=== PATIENT | female | born 1945 | race Caucasian/White ===

== ENCOUNTER 2019-12-03 09:48 | Outpatient (CLI) | payer MEDICARE, SELFPAY ==
--- NOTE | 2019-12-03 10:47 | ECG_ITS ---
Measurements Intervals [place] Rate: 51 P: 155 IL: 160 QRS: -21 QRSD: 86 T: 149 QT: 443 QTc: 410 Interpretive Statements ECTOPIC ATRIAL BRADYCARDIA CANNOT RULE OUT SEPTAL INFARCT, AGE INDETERMINATE LATERAL INFARCT, AGE INDETERMINATE BORDERLINE ST-T WAVE ABNORMALITY- ANTERIOR LEADS BASELINE ARTIFACT- I, III, AVL, V2 ABNORMAL ECG Electronically Signed On 12-03-2019 12:00:51 [employer] INVESTIGATOR by Walter Armenta D.O.
[2019-12-03 11:25] LABS: Basophils Absolute Auto 0.1 K/mm3 (0.0-0.1); Basophils Percent Auto 1.2 % (0.2-1.2); Eosinophils Absolute Auto 0.2 K/mm3 (0-0.3); Eosinophils Percent Auto 3.6 % (0-4.4); Hematocrit 42.5 % (37.0-47.0); Hemoglobin 13.2 g/dL (12.0-15.0); Immature Granulocyte Absolute 0.02 K/mm3 (0.00-0.031); Immature Granulocyte Percent A 0.3 % (0-0.5); Lymphocytes Absolute Auto 1.93 K/mm3 (0.9-3.2); Lymphocytes Percent Auto 30.1 % (18.3-44.2); Mean Corpuscular HGB Conc 31.1 g/dl (32-36); Mean Corpuscular Hemoglobin 24.4 pg (26-34); Mean Corpuscular Volume 78.7 fl (80-100); Mean Platelet Volume 10.1 fl (7.4-10.4); Monocytes Absolute Auto 0.7 K/mm3 (0.1-0.6); Monocytes Percent Auto 10.9 % (2.6-8.5); Neutrophils Absolute Auto 3.5 K/mm3 (1.3-6.7); Neutrophils Percent Auto 53.9 % (45.5-73.1); Platelet Count Result 287 k/mm3 (150-375); Red Cell Distribution Width 16.9 % (11.5-14.5); White Blood Count 6.4 K/mm3 (4.5-10.0)
[2019-12-03 11:43] LABS: INR 0.9; Partial Thromboplastin Time 30.2 SECONDS (22.3-36.8); Prothrombin Time 12.1 Seconds (11.1-14.7)
[2019-12-03 11:53] LABS: Alanine Aminotransferase 22 U/L (4-35); Albumin Level 4.7 g/dL (3.5-5.1); Alkaline Phosphatase 92 U/L (38-126); Aspartate Amino Transferase 33 U/L (14-36); Bilirubin,Total 1.2 mg/dL (0.2-1.3); Blood Urea Nitrogen 10 mg/dL (7-17); Calcium 9.8 mg/dL (8.4-10.2); Carbon Dioxide 29 mmol/L (22-30); Chloride 102 mmol/L (98-107); Estimated Glomerular Filt Rate > 60; Glucose 90 mg/dL (65-105); Potassium 3.9 mmol/L (3.4-5.0); Sodium 142 mmol/L (137-145)
== END 2019-12-03 09:49 | disposition home or self-care (01) ==
LOC: ANHSURGERY 09:53
PROVIDERS: PCP Family Medicine; Visit Provider Urology
DX: Z01.818 Encounter for other preprocedural examination (principal); R94.31 Abnormal electrocardiogram [ECG] [EKG]; N39.3 Stress incontinence (female) (male)
CPT/HCPCS: 36415; 80053; 85025; 85610; 85730; 86850; 86900; 86901; 87086; 93005

== ENCOUNTER 2019-12-13 00:19 | Day surgery (SDC) | payer MEDICARE, SELFPAY ==
[2019-12-03 10:47] VITALS: BP 140/80; PULSE 56; RESP 18; TEMP 36.7; O2SAT 100; BMI 21.1
--- NOTE | 2019-12-08 08:04 | P.HP_ITS ---
H&P: HPI History of Present Illness Chief complaint: Cystocele/ Uterine Prolapse Narrative: Sarai Douglas is a 73 year old female 2 para 2 who is admitted for supracervical hysterectomy bilateral salpingo oophorectomy and sacral colpopexy. She has healthy woman she has had a normal Pap and she complains of a third-degree bulge with discomfort. Risks and benefits of been reviewed in great detail Review of Systems Review of Systems: All systems reviewed & are unremarkable except as noted in HPI and below [facility] Social History Social History Gender identity (if verbalized by the patient): Female Meds Home Medications and Allergies Home Medications Medication Instructions Recorded Confirmed Type No Home Medications 12/03/19 12/03/19 History Allergies Allergy/AdvReac Type Severity Reaction Status Date / Time No Known Allergies Allergy Unverified 12/03/19 10:46 Exam Const: General: no acute distress Eyes: General: appearance normal, both eyes and all related structures Neck: Neck: supple and no JVD Thyroid: thyroid normal Resp: Effort & Inspection: normal respiratory effort Auscultation: clear to auscultation bilaterally Cardio: Rate: regular rate Rhythm: regular rhythm GI: Inspection: non-distended GI Palp: Yes Soft to palpation, No Tenderness to palpation present (GI) and No Guarding due to palpation present (GI) Auscultation: normal bowel sounds : External Female Exam: normal external appearance ( a 30degree prolapse is present) Skin: General skin exam: no rashes or lesions noted Extrem: General: normal to inspection and no edema Psych: Mental Status: mental status grossly normal Affect: normal affect Assessment and Plan Additional Plan impression : Pelvic prolapse Plan: Robotic supracervical hysterectomy and bilateral salpingo-oophorectomy.
[2019-12-13] VITALS (15 sets, daily range): BP systolic 127–149; BP diastolic 57–71; PULSE 43–60; RESP 12–18; TEMP 36.2–36.7; O2SAT 96–100
--- NOTE | 2019-12-13 06:52 | WPDHPUPDATE1 ---
History and Physical Update Update Date/Time: 12/13/19 06:52 History and Physical has been reviewed, including an updated exam of the patient. There are NO changes in the patient's condition. Risks, benefits, and alternatives have been discussed and questions answered. Patient agrees to proceed with procedure.
--- NOTE | 2019-12-13 10:10 | WPDANESEPPF ---
Anes - Initial Pre Proc Eval Procedure: Operation Date: 12/13/19 11:30 Proposed Procedures p Robotic Sacrocolpopexy, Possible Urethral Sling - Marino Vallejo MD s Robotic Assisted Supracervical Hysterectomy, Bilateral Salpingo-Oophorectomy - Chad Jara MD Date/Time: 12/13/19 10:10 Surgeon: Marino Vallejo MD Pre Op Diagnosis: Cystocele/ Uterine Prolapse Patient Data Age: 73 Gender: F Height: 1.57 m Weight: 52.4 kg Last Vital Signs Temp 36.7 C 12/03/19 10:47 Pulse 56 L 12/03/19 10:47 Resp 18 12/03/19 10:47 BP 140/80 12/03/19 10:47 Pulse Ox 100 12/03/19 10:47 Allergies Allergy/AdvReac Type Severity Reaction Status Date / Time No Known Allergies Allergy Unverified 12/13/19 09:50 Home Medications Medication Instructions Recorded Confirmed Type No Home Medications 12/03/19 12/03/19 History Patient hx anesthesia problems: none Family hx anesthesia problems: none [facility] Past Medical History Medical History (Updated 12/13/19 @ 08:15 by Timur Yost DO) History of hiatal hernia Osteopenia Surgical History Surgical History (Updated 12/13/19 @ 08:15 by Timur Yost DO) History of appendectomy Social History Social History Gender identity (if verbalized by the patient): Female Anes - Eval Final PreProcedure Day of Procedure 12/13/19 10:10 Patient weight: normal Heart: regular rate and rhythm Lungs: clear to auscultation and normal air movement Airway: Mallampati scale class II Neurological: alert and oriented Last oral intake: >/= 8 hours ASA classification: II Emergent: no Anesthetic plan: proceed Anesthesia type and monitoring: general ETT and standard monitoring Informed Consent: The patient's anesthetic plan and its attendant risks and benefits were discussed with the patient/family/POA. Questions were solicited and answers provided to the satisfaction of the patient/family/POA.
[2019-12-13] MEDS: LACTATED RINGERS 1,000 ML 30 ML IV CONT ×2 (10:15→14:37)
--- NOTE | 2019-12-13 11:39 | WPDHPUPDATE1 ---
History and Physical Update Update Date/Time: 12/13/19 11:39 History and Physical has been reviewed, including an updated exam of the patient. There are NO changes in the patient's condition. Risks, benefits, and alternatives have been discussed and questions answered. Patient agrees to proceed with procedure.
[2019-12-13] MEDS: ceFAZolin 2 GM/D5W 50 ML 2 GM/50 ML BAG IVPB (11:44)
[2019-12-13] MEDS: metroNIDAZOLE 500 MG/ISO 100ML 500 MG/100 ML BAG 100 MG IVPB ×2 (11:57→23:38)
[2019-12-13] MEDS: BUPIVACAINE/EPINEPHRINE 0.25% 10 ML VIAL 20 ML INFILTRATE (12:26)
--- NOTE | 2019-12-13 12:52 | P.OP_ITS ---
Procedure Note - Detailed Date of procedure: 12/13/19 Pre-op diagnosis: Cystocele/ Uterine Prolapse Surgeon: Chad Jara MD Postop diagnosis: Cystocele/uterine prolapse/adhesions Procedure: Robotic supracervical hysterectomy and bilateral salpingo- oophorectomy/lysis of adhesions Anesthesia: General endotracheal EBL: 5cc for this portion of the procedure Complications: None Findings: Small uterus with complete uterine prolapse small ovaries and tubes. Pelvic adhesions Description procedure: The patient was prepped and draped in the normal sterile fashion placed in the dorsal lithotomy position. Her excellent general trach anesthesia weighted speculum placed post formed vagina. Anterior lip of the cervix grasped with a single-tooth tenaculum the single-tooth was placed attached to the Arias's cannula to be used for uterine manipulation. Next for 16 [place] Citizen catheter was placed in the bladder at and drained of clear urine. The remainder of the instruments removed. Dr. Vallejo proceeded to dock the robot and placed the trocars please see his operative report for full details. Attended the residential treatment counselor at this point. The left round ligament was grasped, burned, cut and anterior bladder flap was formed by sharply dissecting the bladder away from the uterus caudally to the opposite round ligament which was clamped burned and cut. Multiple adhesions were seen from the omentum to the anterior abdominal wall into the lateral pelves these were sharply dissected along taking great care to avoid injury to the underlying bowel. Next the left infundibulopelvic structure was skeletonized serially clamped, burned, cut and brought to the level of the previously cut round ligament in like fashion removing the right ovary and tube the right infundibulopelvic structure was skeletonized clamped, burned, cut and brought the level of the previously cut round ligament next broad and round ligaments were serially skeletonized clamped burned and cut and brought down lateral edge of the uterus until the uterine vessels could be seen these were clamped, burned, cut individually. In like rodrigo guthrie the right cardinal and broad ligaments were serially skeletonized clamped burned cut brought down the lateral edge of the cervix and uterus to the uterine vessels which were serially skeletonized clamped burned and cut individually. Blanching the uterus was seen a supracervical incision was then made. The uterus ovary and 2 ovaries and tubes were placed in an Endo-Catch. Blood loss 5cc to that point. Dr. Vallejo proceeded with the sacral colpopexy and the remainder of his repair which is dictated under separate cover
[2019-12-13] MEDS: KETOROLAC 30 MG/ML VIAL (*BKC) IV PUSH (14:13)
--- NOTE | 2019-12-13 14:22 | PM.PROC ---
Procedure Note - Detailed Date of procedure: 12/13/19 Pre-op diagnosis: Cystocele/ Uterine Prolapse Uterine prolapse Stress urinary incontinence Post-op diagnosis: same Procedure performed: Robotic assisted laparoscopic sacral colpopexy Mid urethral sling Cystoscopy Description of procedure: She understood the risks of bleeding, infection, damage to surrounding organs, bowel injury, bowel obstruction, recurrence of prolapse, persistent or recurrent stress incontinence, mesh related complications including exposure and extrusion, diskitis, postoperative voiding dysfunction including incontinence and retention, hip and leg pain, dyspareunia, and she agrees to proceed. She was correctly identified and informed consent was obtained. She was brought to the operating room. She was given general anesthesia. She was placed in the dorsal lithotomy position. All pressure points were padded. She was given appropriate perioperative antibiotics. Time-out performed. I anesthetized the skin 3 fingerbreadths cephalad to the umbilicus. I incised the skin. I dissected down to locate the fascia. I grasped the fascia with Moni clamps. I entered the fascia sharply. I placed Vicryl sutures for later fascial closure. I placed a midline trocar. Under direct vision 2 additional trocars were placed on the right and left upper quadrant. She was placed in steep Trendelenburg. There were some adhesions of omentum to the anterior abdominal wall. These were taken down with a combination of blunt and sharp dissection. The robot was docked. Her manager budget performed the portion of the procedure and left the specimen and a sac which was extracted. I then sat at the console. With the Sizer in the vagina I created a plane on the anterior and posterior vaginal wall. This was done for several cm taking great care not to injure the vagina, bladder, or rectum. I introduced the mesh into the abdomen. I sewed the anterior leaflet of mesh on the anterior vaginal wall and posterior leaf of the mesh on the posterior vaginal wall with several [place] sutures taking great care not to go through and through. I then reflected the colon laterally. I opened up the posterior peritoneum over the sacral promontory. I carried this into the cul-de-sac. I kept the ureters lateral. I freed up the edges. I located the anterior longitudinal ligament of the sacrum. I tensioned the mesh appropriately. I did a vaginal exam to ensure prolapse reduction without undue tension. I then sewed the proximal leaflet of mesh onto the ligament with 3 sutures of 2 0 [place]. Next the mass was meticulously retroperitonealized with a running 2 0 Monocryl suture. I allowed the colon to go back into its normal anatomic location. There is no signs of any impingement or stricturing. The abdomen was exited. Fascia was closed. Skin was closed with Monocryl and glue. She was repositioned and prepped for perineal surgery and prepped and draped. I turned my attention towards the urethral sling. I marked out the thigh incisions. I anesthetize the skin and made those incisions. I anesthetized the anterior vaginal wall over the mid urethra. I made a 1 cm incision. I dissected out laterally taking great care not to injure the urethra or the vaginal wall. I next passed the helical trocars to 1st on the left and then on the right. This was done from the thigh incision towards the vaginal incision. The sling was connected to the trocars and brought out through the thigh incision. I tensioned the sling appropriately. I cut and removed the plastic sheaths. I then closed the incision with 2 0 Vicryl. I then performed cystoscopy. The bladder is examined. There was no tumors, stones, foreign bodies, surgical artifact. Both ureters were seen to excrete clear yellow urine. There is no surgical artifact in the urethra. Catheter was then replaced. She was awakened and transferred to the PACU in stable condition. Implants
--- NOTE | 2019-12-13 15:12 | SUR.PHASEI ---
1512 - family updated on pt's status and sent to floor
[2019-12-13] MEDS: KCL 20 MEQ/D5/0.45% SOD CHL 1,000 ML 100 ML IV CONT (23:38)
[2019-12-14 00:49] VITALS: BP 113/53; PULSE 61; RESP 17; TEMP 36.7
[2019-12-14 04:25] VITALS: BP 122/49; PULSE 53; RESP 17; TEMP 36.6
[2019-12-14] MEDS: metroNIDAZOLE 500 MG/ISO 100ML 500 MG/100 ML BAG 100 MG IVPB (06:10)
--- NOTE | 2019-12-14 06:49 | PM.OBPNVD ---
OB - PN: Subj Subjective Date/time seen: 12/14/19 06:49 Patient comments: no complaints and pain well controlled OB - PN A/P Time Spent With Patient Time: Total time spent is greater than 50% in coordination of care (as documented) at patient's floor/unit and/or counseling patient: Review of Systems Review of Systems: All systems reviewed & are unremarkable except as noted in HPI and below Exam Const: General: no acute distress Eyes: General: appearance normal, both eyes and all related structures Neck: Neck: supple and no JVD Thyroid: thyroid normal Resp: Effort & Inspection: normal respiratory effort Auscultation: clear to auscultation bilaterally Cardio: Rate: regular rate Rhythm: regular rhythm GI: Inspection: non-distended GI Palp: Yes Soft to palpation, No Tenderness to palpation present (GI) and No Guarding due to palpation present (GI) Auscultation: normal bowel sounds : General: Yes bladder normal to palpation External Female Exam: normal external appearance Speculum Exam - Vagina: normal vaginal discharge and No vaginal bleeding Speculum Exam - Cervix: nontender Bimanual exam- vagina & uterus: bladder normal to palpation and No Cervical tenderness present OB/external & speculum: No vaginal bleeding Skin: General skin exam: no rashes or lesions noted Extrem: General: normal to inspection and no edema Psych: Mental Status: mental status grossly normal Affect: normal affect
--- NOTE | 2019-12-14 06:50 | P.DS_ITS ---
DS: Diagnosis Admitting Diagnosis Admitting Diagnosis: prolapse DS: Summary Time Spent with Patient Time attestation: Total time spent providing and/or coordinating discharge services: Exam Const: General: no acute distress Eyes: General: appearance normal, both eyes and all related structures Neck: Neck: supple and no JVD Thyroid: thyroid normal Resp: Effort & Inspection: normal respiratory effort Auscultation: clear to auscultation bilaterally Cardio: Rate: regular rate Rhythm: regular rhythm GI: Inspection: non-distended GI Palp: Yes Soft to palpation, No Tenderness to palpation present (GI) and No Guarding due to palpation present (GI) Auscultation: normal bowel sounds : General: Yes bladder normal to palpation External Female Exam: normal external appearance Speculum Exam - Vagina: normal vaginal discharge and No vaginal bleeding Speculum Exam - Cervix: nontender Bimanual exam- vagina & uterus: bladder normal to palpation and No Cervical tenderness present OB/ext ernal & speculum: No vaginal bleeding Skin: General skin exam: no rashes or lesions noted Extrem: General: normal to inspection and no edema Psych: Mental Status: mental status grossly normal Affect: normal affect DS: Data Data Completed and Pending Pending studies at discharge: Pending at discharge 12/13/19 12:36 Surgical [PTH] Routine Discharge Plan Discharge Patient Disposition: Home, Self-Care Discharge Instructions: No lifting >20lb, exercise for 6 weeks No tub bath or pool for 2 weeks Follow-up/Referrals: Marino Vallejo MD [Physician] - (in one and 6 weeks) Discharge Medications: New tramadol 50 mg tablet 50 mg PO Q6H PRN (Reason: pain) Qty: 20 RF: 0 docusate sodium [Colace] 100 mg capsule 100 mg PO BID Qty: 60 RF: 0
--- NOTE | 2019-12-14 07:46 | WPDANESPN ---
Anes - Prog Note Post-Op Date/Time: 12/14/19 07:46 Cardiovascular status: normal Respiratory status: normal Airway patency: baseline Mental status: baseline Post-Op hydration status: normal Vital Signs: Last Vital Signs Temp 36.6 C 12/14/19 04:25 Pulse 53 L 12/14/19 04:25 Resp 17 12/14/19 04:25 BP 122/49 L 12/14/19 04:25 Pulse Ox 98 12/13/19 16:58 I/O: Intake & Output 12/13/19 12/13/19 12/14/19 15:59 23:59 07:59 Intake Total 350 550 900 Output Total 139 223 0999 Balance -50 200 -300 Post-procedural complaints: none Patient Feedback: Patient satisfied with anesthetic care.
[2019-12-14 08:20] VITALS: BP 118/42; PULSE 63; RESP 18; TEMP 37.3; O2SAT 98
[2019-12-14] MEDS: DOCUSATE SODIUM 100 MG CAPSULE PO (09:08)
[2019-12-14] MEDS: ENOXAPARIN 30 MG/0.3 ML SYRINGE SUB-Q (09:09)
== END 2019-12-14 11:55 | disposition home or self-care (01) ==
LOC: ANHSURGERY 11:40 → ANHOB2 15:48
PROVIDERS: Obstetrics & Gynecology; PCP Family Medicine; Visit Provider Urology
PROC: (CPT 57425; principal; 2019-12-13 11:30)
PROC: 0UT94ZZ Resection of Uterus, Percutaneous Endoscopic Approach (ICD-10-PCS; CPT 57425; 2019-12-13 11:30)
DX: N81.3 Complete uterovaginal prolapse (principal); N39.3 Stress incontinence (female) (male); N80.0 Endometriosis of uterus; N73.6 Female pelvic peritoneal adhesions (postinfective); M85.80 Other specified disorders of bone density and structure, unspecified site
CPT/HCPCS: 57425; 57288; 58542; S2900 ×2; 88307; 99199; A9270; C1771; C1781; J0131; J0690; J1100; J1170; J1650; J1885; J2250; J2405; J2704; J3010; J3480; J7030; J7120

== ENCOUNTER 2020-08-09 07:56 | Outpatient (CLI) | payer MEDICARE, SELFPAY ==
--- NOTE | ~2020-08-09 | DEXA_ITS ---
Bone Density Report Name: Sarai Douglas Age: 74 Sex: Female Ethnicity: White Date of : 1945 Indication: osteopenia; Referring Provider: Jonah Wood Study: Bone densitometry was performed. Exam Date: August 09, 2020 Accession number: [id number] Bone Density: Region BMD T-score Z-score Classification AP Spine (L1-L4) 0.828 -2.0 0.4 Osteopenia Femoral Neck (Left) 0.687 -1.5 0.7 Osteopenia Total Hip (Left) 0.767 -1.4 0.4 Osteopenia Total Hip Bilateral Avg 0.759 -1.5 0.3 Osteopenia Femoral Neck (Right) 0.705 -1.3 0.8 Osteopenia Total Hip (Right) 0.750 -1.6 0.2 Osteopenia World Health Organization criteria for BMD impression classify patients as: Normal (T-score at or above -1.0), Osteopenia (T-score between -1.0 and -2.5), or Osteoporosis (T-score at or below -2.5). 10-year Fracture Risk(1): Major Osteoporotic Fracture 9.3% Hip Fracture 2.0% Reported Risk Factors: [place] (), Neck BMD=0.687, BMI=19.1 (1) FRAX(R) Version 3.08. Fracture probability calculated for an untreated patient. Fracture probability may be lower if the patient has received treatment. Previous Exams: Region Exam Age BMD T-score BMD Change BMD Change Date g/cm2 vs Baseline vs Previous AP Spine(L1-L4) 08/09/2020 74 0.828 -2.0 -0.007(-0.8%)# -0.002(-0.2%) 07/20/2018 72 0.830 -2.0 -0.005(-0.6%)# -0.012(-1.5%)# 06/11/2016 70 0.843 -1.9 0.008(0.9%)# 0.009(1.1%) 06/04/2013 67 0.834 -1.9 -0.001(-0.2%)# -0.027(-3.2%)# 04/05/2011 65 0.861 -1.7 0.026(3.1%)* 0.026(3.1%)* 05/03/2006 60 0.835 -1.9 Total Hip(Left) 08/09/2020 74 0.767 -1.4 -0.061(-7.4%)# 0.018(2.4%) 07/20/2018 72 0.749 -1.6 -0.079(-9.5%)# -0.054(-6.8%)# 06/11/2016 70 0.803 -1.1 -0.025(-3.0%)# -0.052(-6.0%)* 06/04/2013 67 0.855 -0.7 0.027(3.3%)# 0.030(3.6%)# 04/05/2011 65 0.825 -1.0 -0.003(-0.3%) -0.003(-0.3%) 05/03/2006 60 0.828 -0.9 Total Hip(Right) 08/09/2020 74 0.750 -1.6 -0.042(-5.3%)# -0.013(-1.7%) 07/20/2018 72 0.763 -1.5 -0.029(-3.6%)# -0.048(-5.9%)# 06/11/2016 70 0.811 -1.1 0.019(2.4%)# -0.014(-1.7%) 06/04/2013 67 0.825 -1.0 0.033(4.2%)# 0.034(4.3%)# 04/05/2011 65 0.791 -1.2 -0.001(-0.1%) -0.001(-0.1%) 05/03/2006 60 0.792 -1.2 *Denotes significance at 95% confidence level, LSC for AP Spine = 0.022 g/cm2, LSC for Total Hip = 0.027 g/cm2 Clinical Information Provided by Patient: Has used the followi
--- NOTE | ~2020-08-09 | MM_ITS ---
EXAMINATION: MM screening [facility] BI w [place]orro HISTORY: Screening mammogram TECHNIQUE: Craniocaudal and mediolateral oblique 3-D tomosynthesis images were obtained and synthetic 2-D images were generated. CAD analysis was submitted and interpreted. COMPARISON: 07/22/2019, 07/20/2018, 05/31/2016 BREAST PARENCHYMAL COMPOSITION: There are scattered areas of fibroglandular density. FINDINGS: There is no evidence of suspicious mass, calcification, or architectural distortion to sugg est malignancy in either breast. There has been no suspicious interval change. IMPRESSION: 1. No mammographic evidence of malignancy. 2. Recommend routine screening mammography in one year. BI-RADS Category 1: Negative Reviewed, dictated and finalized at location A.
== END 2020-08-09 07:57 | disposition home or self-care (01) ==
LOC: ANHIMG 07:59
PROVIDERS: PCP Family Medicine; Visit Provider Family Medicine
DX: Z12.31 Encounter for screening mammogram for malignant neoplasm of breast (principal); Z78.0 Asymptomatic menopausal state; M85.88 Other specified disorders of bone density and structure, other site; M85.852 Other specified disorders of bone density and structure, left thigh; M85.851 Other specified disorders of bone density and structure, right thigh
CPT/HCPCS: 77063; 77067; 77080

== ENCOUNTER 2021-08-22 14:32 | Outpatient (CLI) | payer MEDICARE, SELFPAY ==
--- NOTE | ~2021-08-22 | MM_ITS ---
EXAMINATION: MM screening [place] BI w [place] HISTORY: Screening mammogram TECHNIQUE: Craniocaudal and mediolateral oblique 3-D tomosynthesis images were obtained and synthetic 2-D images were generated. CAD analysis was submitted and interpreted. COMPARISON: 08/09/2020, 07/22/2019, 07/20/2018 bilateral screening mammogram examinations BREAST PARENCHYMAL COMPOSITION: There are scattered areas of fibroglandular density. FINDINGS: There is no evidence of suspicious mass, calcification, or architectural distortion to sugg est malignancy in either breast. There has been no suspicious interval change. IMPRESSION: 1. No mammographic evidence of malignancy. 2. Recommend routine screening mammography in one year. BI-RADS Category 1: Negative Reviewed, dictated and finalized at location A. ONDER
== END 2021-08-22 14:33 | disposition home or self-care (01) ==
LOC: ANHIMG 14:36
PROVIDERS: PCP Family Medicine; Visit Provider Family Medicine
DX: Z12.31 Encounter for screening mammogram for malignant neoplasm of breast (principal)
CPT/HCPCS: 77063; 77067

== ENCOUNTER 2022-09-09 14:57 | Outpatient (CLI) | payer MEDICARE, SELFPAY ==
--- NOTE | ~2022-09-09 | DEXA_ITS ---
Bone Density Report Name: DARLENE FIGUEROA Age: 76 Sex: Female Ethnicity: White Date of : 1945 Indication: osteopenia; hysterectomy; postmenopausal Referring Provider: ASA ISAAC Study: Bone densitometry was performed. Exam Date: September 09, 2022 Accession number: [id number] Bone Density: Region BMD T-score Z-score Classification AP Spine(L1-L4) 0.853 -1.8 0.8 Osteopenia Femoral Neck (Left) 0.655 -1.8 0.5 Osteopenia Total Hip (Left) 0.708 -1.9 0.0 Osteopenia Femoral Neck (Right) 0.660 -1.7 0.5 Osteopenia Total Hip (Right) 0.706 -1.9 0.0 Osteopenia Total Hip Mean 0.707 -1.9 0.0 Osteopenia World Health Organization criteria for BMD impression classify patients as: Normal (T-score at or above -1.0), Osteopenia (T-score between -1.0 and -2.5), or Osteoporosis (T-score at or below -2.5). 10-year Fracture Risk(1): Major Osteoporotic Fracture 11% Hip Fracture 3.0% Reported Risk Factors: [place] (), Neck BMD=0.655, BMI=19.9 (1) FRAX(R) Version 3.08. Fracture probability calculated for an untreated patient. Fracture probability may be lower if the patient has received treatment. Previous Exams: Region Exam Age BMD T-score BMD Change BMD Change Date g/cm2 vs Baseline vs Previous AP Spine (L1-L4) 09/09/2022 76 0.853 -1.8 0.019 (2.3%)# 0.024 (2.9%)* 08/09/2020 74 0.828 -2.0 -0.005 (-0.6%) -0.002 (-0.2%) 07/20/2018 72 0.830 -2.0 -0.003 (-0.4%) -0.012 (-1.5%) 06/11/2016 70 0.843 -1.9 0.009 (1.1%) 0.009 (1.1%) 06/04/2013 67 0.834 -1.9 Total Hip(Left) 09/09/2022 76 0.708 -1.9 -0.147 (-17.2% -0.059 (-7.7%) 08/09/2020 74 0.767 -1.4 -0.088 (-10.3% 0.018 (2.4%) 07/20/2018 72 0.749 -1.6 -0.106 (-12.4% -0.054 (-6.8%) 06/11/2016 70 0.803 -1.1 -0.052 (-6.0%) -0.052 (-6.0%) 06/04/2013 67 0.855 -0.7 Total Hip(Right) 09/09/2022 76 0.706 -1.9 -0.119 (-14.4% -0.044 (-5.9%) 08/09/2020 74 0.750 -1.6 -0.075 (-9.1%) -0.013 (-1.7%) 07/20/2018 72 0.763 -1.5 -0.062 (-7.5%) -0.048 (-5.9%) 06/11/2016 70 0.811 -1.1 -0.014 (-1.7%) -0.014 (-1.7%) 06/04/2013 67 0.825 -1.0 *Denotes significance at 95% confidence level, LSC for AP Spine = 0.022 g/cm2, LSC for Total Hip = 0.027 g/cm2 # Denotes dissimilar scan types or analysis methods Clinical Information Provided by Patient: Has used the following medications: Vitamin D, Calcium Has the following medical conditions: Hysterectomy Patient dk
== END 2022-09-09 14:58 | disposition home or self-care (01) ==
PROVIDERS: PCP Family Medicine; Visit Provider Family Medicine
DX: Z78.0 Asymptomatic menopausal state (principal); M85.88 Other specified disorders of bone density and structure, other site; M85.852 Other specified disorders of bone density and structure, left thigh; M85.851 Other specified disorders of bone density and structure, right thigh
CPT/HCPCS: 77080

== ENCOUNTER 2022-09-24 10:35 | Outpatient (CLI) | payer MEDICARE, SELFPAY ==
--- NOTE | ~2022-09-24 | MM_ITS ---
EXAMINATION: MM screening [place] BI w [place] HISTORY: Screening TECHNIQUE: Craniocaudal and mediolateral oblique 3-D tomosynthesis images were obtained and synthetic 2-D images were generated. CAD analysis was submitted and interpreted. COMPARISON: Comparison to multiple prior studies sequentially, with oldest reviewed study dated 05/12. BREAST PARENCHYMAL COMPOSITION: There are scattered areas of fibroglandular density. FINDINGS: There is no evidence of suspicious mass, calcification, or architectural distortion to sugg est malignancy in either breast. There has been no suspicious interval change. IMPRESSION: 1. No mammographic evidence of malignancy. 2. Recommend routine screening mammography in one year. BI-RADS Category 1: Negative Reviewed, dictated and finalized at location B. TECHNICIAN
== END 2022-09-24 10:36 | disposition home or self-care (01) ==
PROVIDERS: PCP Family Medicine; Visit Provider Family Medicine
DX: Z12.31 Encounter for screening mammogram for malignant neoplasm of breast (principal)
CPT/HCPCS: 77063; 77067

== ENCOUNTER → 2023-01-27 15:45 | Outpatient (CLI) | payer MEDICARE, SELFPAY ==
--- NOTE | ~2023-01-27 | XR_ITS ---
XR hip BI 2V w AP pelvis 01/27/2023 16:15 Indication: Right hip pain Procedure: AP pelvis and 2 views each hip Comparison: No prior studies for comparison. Findings: Moderate osteoarthritis of the hips, left greater than right. Pelvic rings are intact. Oste openia. No significant soft tissue abnormality. There is lumbar spondylosis with dextroscoliosis. No fracture or traumatic malalignment. Impression: 1: Moderate osteoarthritis of the hips, left greater than right. Reviewed, dictated and finalized at location A. Impression: 1: Moderate osteoarthritis of the hips, left greater than right.
== END ==
PROVIDERS: PCP Family Medicine; Visit Provider Family Medicine
DX: M16.0 Bilateral primary osteoarthritis of hip (principal)
CPT/HCPCS: 73521

== ENCOUNTER 2023-04-21 15:48 | Inpatient (IN) | payer MEDICARE, SELFPAY ==
[2023-04-21] VITALS (16 sets, daily range): BP systolic 104–154; BP diastolic 48–75; PULSE 57–77; RESP 13–20; TEMP 36.1–36.6; O2SAT 97–100
--- NOTE | ~2023-04-21 | XR_ITS ---
EXAMINATION: XR chest 2V DATE: 04/21/2023 17:00 INDICATION: Chest pain and shortness of breath TECHNIQUE: PA and lateral views of the chest are obtained. COMPARISON: 12/16/2011 FINDINGS: The lungs are free of acute opacities. No pleural effusion or pneumothorax. The cardiomedia stinal silhouette is normal. There is mild thoracic spondylosis. IMPRESSION: 1. No acute cardiopulmonary abnormality. Reviewed, dictated and finalized at location B.
--- NOTE | 2023-04-21 16:00 | ECG_ITS ---
Measurements Intervals [place] Rate: 66 P: 74 GA: 167 QRS: 4 QRSD: 78 T: 62 QT: 423 QTc: 444 Interpretive Statements SINUS RHYTHM WITH SINUS ARRHYTHMIA NORMAL ECG COMPARED TO ECG 12/03/2019 11:19:21 SINUS RHYTHM NOW PRESENT SINUS ARRHYTHMIA NOW PRESENT Electronically Signed On 04-21-2023 16:04:29 CDT by Walter Armenta D.O.
[2023-04-21 16:15] LABS: Eosinophils Absolute Auto 0.2 K/mm3 (0-0.3); Immature Granulocyte Absolute 0.01 K/mm3 (0.00-0.031); Immature Granulocyte Percent A 0.2 % (0-0.5); Lymphocytes Percent Auto 34.7 % (18.3-44.2); Mean Corpuscular HGB Conc 30.5 g/dl (32-36); Mean Corpuscular Hemoglobin 26.2 pg (26-34); Mean Corpuscular Volume 86.1 fl (80-100); Mean Platelet Volume 9.2 fl (7.4-10.4); Monocytes Absolute Auto 0.4 K/mm3 (0.1-0.6); Monocytes Percent Auto 10.9 % (2.6-8.5); Neutrophils Percent Auto 49.2 % (45.5-73.1); Platelet Count Result 274 k/mm3 (150-375); Red Blood Count 2.44 M/mm3 (4.2-5.4); Red Cell Distribution Width 15.7 % (11.5-14.5)
[2023-04-21 16:28] LABS: Alanine Aminotransferase 21 U/L (6-35); Alkaline Phosphatase 60 U/L (38-126); Anion Gap 7 mmol/L (8-16); Aspartate Amino Transferase 31 U/L (14-36); Bilirubin,Total 0.8 mg/dL (0.2-1.3); Blood Urea Nitrogen 18 mg/dL (7-17); Calcium 9.3 mg/dL (8.4-10.2); Carbon Dioxide 27 mmol/L (22-30); Chloride 105 mmol/L (98-107); Estimated CRCL calculation 45 ml/min; Estimated Glomerular Filt Rate > 60; Glucose 80 mg/dL (65-110); Hemoglobin 6.4 g/dL (12.0-15.0); Lipase 198 U/L (23-300); Potassium 3.8 mmol/L (3.4-5.0); Sodium 139 mmol/L (137-145)
[2023-04-21 16:40] LABS: Troponin I < 0.012 ng/mL (0.000-0.034)
[2023-04-21 16:46] LABS: INR 1.1; Prothrombin Time 14.7 Seconds (11.1-14.7)
[2023-04-21 16:47] LABS: Partial Thromboplastin Time 29.7 SECONDS (22.3-36.8)
[2023-04-21] MEDS: ASPIRIN 81 MG CHEWABLE TABLET 324 MG PO (17:25)
--- NOTE | 2023-04-21 17:37 | ED.CHESTPAIN ---
HPI - Chest Pain General Chief Complaint: Chest Pain Stated Complaint: chest pressure/sob Time Seen by Provider: 04/21/23 17:16 History of Present Illness HPI narrative: Patient is a 77-year-old female presenting with exertional chest pain and dyspnea. Patient states that she is very active and she normally goes on walks with her dog every day. States that for the last week she has been experiencing worsening dyspnea with her walks. States that she is not able to go nearly as far as normal. States that she is also been having chest pressure during these episodes. Her symptoms improved with rest. She went to see her PCP today who advised she come to the ER for further evaluation. Patient also states that she has had black stools for the last week or so. Related Data Allergies Allergy/AdvReac Type Severity Reaction Status Date / Time No Known Allergies Allergy Verified 04/23/23 11:39 Review of Systems Review of Systems: All systems reviewed & are unremarkable except as noted in HPI and below PMFSH Past Medical History Medical History B12 deficiency anemia Hiatal hernia Hyperlipidemia NSAID long-term use Osteopenia Surgical History Surgical History History of appendectomy History of partial hysterectomy History of right cataract extraction (02/2021) Family History Family History Mother Family history of chronic obstructive pulmonary disease Social History Social History Social History: Surrogate medical decision maker: Mariola Mares, daughter. Code status: Smoking status: Never smoker Second hand tobacco smoke exposure: No Alcohol intake: never Substance use: never Substance use type: does not use Lack of Transportation: No Lack of Food: Never True Current Housing: I Have Housing Concerned About Future Housing: No Difficulty Paying Gas/Electric Bills: No Difficulty Paying for Meds: No Currently Unemployed: No Education: High School Diploma/GED Difficulty w/ Childcare or Family Care: No Living arrangements: alone Additional living arrangements comments: . Lives in [place] with her dog. Occupation/Education: retired Spiritual care concerns: No Exam Narrative: GENERAL: Well-appearing, well-nourished, and in no acute distress. HEAD: Normocephalic, atraumatic. EYES: PERRLA and EOMI. ENT: Nares clear, no rhinorrhea or epistaxis. Mucous membranes moist. NECK: Supple. CHEST: Clear to auscultation. No respiratory distress. HEART: Regular rate and rhythm. Normal peripheral pulses. ABDOMEN: Soft, nontender, nondistended EXTREMITIES: Normal range of motion. No edema. SKIN: Warm, dry, no rash. NEURO: No focal deficits. Alert and oriented x3. PSYCH: Normal mood and affect. Course Vital Signs Vital signs: Vital Signs Temperature 97.9 F 04/21/23 16:02 Pulse Rate 63 04/21/23 16:02 Respiratory Rate 20 04/21/23 16:02 Blood Pressure 152/71 H 04/21/23 16:02 Pulse Oximetry 100 04/21/23 16:02 Oxygen Delivery Room Air 04/21/23 16:02 Temperature 97.9 F 04/23/23 14:00 Pulse Rate 54 L 04/23/23 14:00 Respiratory Rate 16 04/23/23 14:00 Blood Pressure 118/46 L 04/23/23 14:00 Pulse Oximetry 100 04/23/23 14:00 Oxygen Delivery Room Air 04/23/23 13:51 MDM - Chest Pain MDM Narrative Medical decision making narrative: Patient is a 77-year-old female presenting with chest pain and shortness of breath. Vitals are within normal limits. Exam is unremarkable. Blood work is concerning for a hemoglobin of 6.4. 2 units of blood have been ordered. EKG per my interpretation shows normal sinus rhythm with sinus arrhythmia, no acute ischemic changes. Chest x-ray with no acute abnormalities. Patient requir
[2023-04-21] MEDS: PANTOPRAZOLE SODIUM IV 40 MG VIAL 80 MG IV PUSH (18:12)
[2023-04-21 19:28] LABS: Troponin I < 0.012 ng/mL (0.000-0.034)
--- NOTE | 2023-04-21 20:01 | PM.IMHP ---
H&P: HPI History of Present Illness Date/Time: 04/21/23 18:45 Chief Complaint: Chest pressure and shortness of breath. Narrative: This is a very pleasant and remarkably healthy 77-year-old female who presented to the emergency department via private vehicle from home for evaluation of chest pressure and shortness of breath. The patient provides the following history. She is very active and walks 2 miles each day. Last Friday while walking her usual route she felt winded and had mid chest pressure when walking up an incline which is very unusual for her. She cut the walk short, went home, and she felt better with rest. Each day thereafter she has noticed herself becoming winded with activities that she is usually able to do without issue (daily walk, vacuuming the rug). The other day she and her daughter were walking around the park and not long after the start of the walk her symptoms returned and it took her almost 10 minutes to recover. She called her doctor today and was directed to the emergency department. She denies syncope, near syncope, fever, chills, sweats, cold and flu symptoms, palpitations, sensations of racing heart, nausea, vomiting, sweats, and lower extremity edema. Vital signs were stable on arrival. Pertinent labs include: WBC count 4.0, RBC count 2.44, hemoglobin 6.4, hematocrit 21%, platelets 274, troponin less than 0.012. Chest x-ray showed no acute cardiopulmonary abnormality and a normal cardiomediastinal silhouette. EKG showed sinus rhythm with sinus arrhythmia and no acute ST segment changes. With further questioning she does mention that her stools have been dark for the last couple of weeks. She has never noticed anything like that in the past. She has no history of GERD or peptic ulcers. Weight has remained stable. She is not on iron supplementations nor does she take Pepto-Bismol. She denies alcohol use and reports drinking may be 3 to 4 cups of coffee a week. She takes 1 Aleve a couple of times a week for generalized aches and pains. Review of Systems Review of Systems: Twelve systems were reviewed and are negative except for as per HPI. [facility] Past Medical History Medical History (Updated 04/21/23 @ 22:54 by Jacki Vázquez PA-C) Hiatal hernia Hyperlipidemia Osteopenia Surgical History Surgical History (Updated 04/21/23 @ 22:51 by Jacki Vázquez PA-C) History of appendectomy History of partial hysterectomy History of right cataract extraction (02/2021) Family History Family History Mother Family history of chronic obstructive pulmonary disease Social History Social History (Updated 04/21/23 @ 22:52 by Jacki Vázquez PA-C) Social History: Surrogate medical decision maker: Mariola Mares, daughter. Code status: Smoking status: Never smoker Second hand tobacco smoke exposure: No Alcohol intake: never Substance use: never Substance use type: does not use Lack of Transportation: No Lack of Food: Never True Current Housing: I Have Housing Concerned About Future Housing: No Difficulty Paying Gas/Electric Bills: No Difficulty Paying for Meds: No Currently Unemployed: No Education: High School Diploma/GED Difficulty w/ Childcare or Family Care: No Living arrangements: alone Additional living arrangements comments: . Lives in [place] with her dog. Occupation/Education: retired Spiritual care concerns: No Meds Home Medications and Allergies Home Medications Medication Instructions Recorded Confirmed Type calcium carbonate 600 mg-vitamin 1 cap PO DAILY #30 caps 03/19/21 04/21/23 Rx D3 12.5 mcg (500 unit) capsule (Calcium 600 with Vitamin D3) Allergies Allergy/AdvReac Type Severity Reaction Status Date / Time No Known Allergies Allergy Verified 04/21/23 15:06 Vital Signs Vital Signs - 24 hr 04/21/23 16:02 04/21/23 18:51 04/21/23 18:52 Temperatur
--- NOTE | 2023-04-21 21:28 | ADMGEN ---
This patient, Sarai Douglas, was admitted to [facility] Surg Room 312-01 at 1905. Patient/family oriented to hospital policies and general routines including ID bracelet, bed and alarms, visiting hours, pain management, procedures, bathroom and other care routines, personal items, smoking policy, room service/diet, and visiting hours. Information on how to activate the Rapid Response Team has been discussed. Patient/Family are encouraged to report perceived risks to care and to ask questions if they do not understand what they are told or what they should do.
[2023-04-21 21:52] LABS: Iron 22 ug/dL (37-170)
[2023-04-21 21:53] LABS: Immature Reticulocyte Fraction 29.8 % (3.0-15.9); Reticulocyte Hemoglobin Conten 18.1 pg (28.2-35.7); Reticulocyte Percent 3.29 % (0.7-4.3); Reticulocytes Absolute 0.07 M/mm3 (0.02-0.1)
[2023-04-21 21:59] LABS: Transferrin 307 mg/dL (206-381)
[2023-04-21] MEDS: SODIUM CHLORIDE 0.9% IV 250 ML 30 ML IV CONT (22:00)
[2023-04-21 22:02] LABS: Percent Iron Saturation 5 % (20-50)
[2023-04-21 22:12] LABS: Troponin I < 0.012 ng/mL (0.000-0.034)
[2023-04-21 22:56] LABS: Ferritin 5.19 ng/mL (11.1-264)
[2023-04-21 22:59] LABS: Folic Acid 15.5 ng/mL (2.76->20)
[2023-04-22] VITALS (10 sets, daily range): BP systolic 104–154; BP diastolic 43–72; PULSE 50–79; RESP 14–16; TEMP 36.3–37; O2SAT 98–100
[2023-04-22 06:37] LABS: Hemoglobin 8.9 g/dL (12.0-15.0); Mean Corpuscular HGB Conc 31.8 g/dl (32-36); Mean Corpuscular Hemoglobin 27.9 pg (26-34); Mean Corpuscular Volume 87.8 fl (80-100); Mean Platelet Volume 9.6 fl (7.4-10.4); Platelet Count Result 237 k/mm3 (150-375); Red Blood Count 3.19 M/mm3 (4.2-5.4); Red Cell Distribution Width 15.1 % (11.5-14.5); White Blood Count 4.3 K/mm3 (4.5-10.0)
[2023-04-22 06:46] LABS: Anion Gap 1 mmol/L (8-16); Blood Urea Nitrogen 16 mg/dL (7-17); Calcium 8.1 mg/dL (8.4-10.2); Carbon Dioxide 26 mmol/L (22-30); Chloride 111 mmol/L (98-107); Estimated CRCL calculation 40 ml/min; Estimated Glomerular Filt Rate > 60; Glucose 86 mg/dL (65-110); Magnesium 1.9 mg/dL (1.6-2.3); Sodium 138 mmol/L (137-145)
--- NOTE | 2023-04-22 12:47 | PM.IMPN ---
Progress Note: A&P Assessment and Plan (1) Chest pressure: Code(s): R07.89 - Other chest pain Status: Acute Assessment and Plan: EKG showing NSR with sinus arrhythmia. Trop negative x3. Echo showing EF 65-70%, diastolic dysfunction, and mild pHTN. Corona related demand ischemia from the anemia. Resolved. Follow (2) Symptomatic anemia: Code(s): D64.9 - Anemia, unspecified Status: Acute Assessment and Plan: Hgb 6.4 on admission. She was having black stools. She does use NSAIDs 3-4x/week on average. Iron studies consistent with iron deficiency. Also noted to be B12 deficiency. Suspect GI blood loss. GI consulted. Endoscopy planned for the morning. Add PPI. Follow HH and transfuse to stable Hgb. (3) Iron deficiency anemia: Code(s): D50.9 - Iron deficiency anemia, unspecified Status: Acute Assessment and Plan: As above. Order iron replacement after endoscopy completed. (4) B12 deficiency anemia: Code(s): D51.9 - Vitamin B12 deficiency anemia, unspecified Status: Acute Assessment and Plan: B12 level 215 consistent with B12 deficiency. Will replace. Will need to be discharged home on B12. Subjective Date/time seen: 04/22/23 12:47 Interval history: 77yo female with HLD here for chest pain and SOB and found to have anemia. No CP or SOB. No BMs since admission. Walking in halls. Exam Narrative: AF 97.3 122/54 63 16 100% ra Gen - NARD Chest - CTA bilaterally, nml RR CV - RRR S1/S2 Abd - Soft, NT/ND, Positive BS Ext - No pedal edema Psych - Nml mood and affect Skin - Warm and dry Objective Data Vital Signs Vital Signs: Vital Signs - 24 hr 04/21/23 16:02 04/21/23 18:51 04/21/23 18:52 Temperature 97.9 F Pulse Rate 63 57 L Respiratory Rate 20 14 Blood Pressure 152/71 H 135/59 L Pulse Oximetry 100 100 Oxygen Delivery Room Air Room Air 04/21/23 17:28 04/21/23 17:30 04/21/23 17:45 Temperature Pulse Rate 77 67 61 Respiratory Rate 20 14 13 Blood Pressure Pulse Oximetry 98 100 Oxygen Delivery 04/21/23 17:46 04/21/23 18:01 04/21/23 18:02 Temperature Pulse Rate 62 57 L 59 L Respiratory Rate 13 14 13 Blood Pressure 154/62 H 152/75 H Pulse Oximetry Oxygen Delivery 04/21/23 18:22 04/21/23 18:30 04/21/23 18:45 Temperature Pulse Rate 58 L 60 61 Respiratory Rate 14 18 17 Blood Pressure Pulse Oximetry 100 100 100 Oxygen Delivery 04/21/23 20:23 04/21/23 22:26 04/21/23 22:45 Temperature 97.2 F L 97.0 F L 97 F L Pulse Rate 75 65 65 Respiratory Rate 16 16 16 Blood Pressure 128/60 104/50 L 104/50 L Pulse Oximetry 100 100 100 Oxygen Delivery 04/21/23 22:43 04/21/23 23:43 04/22/23 00:15 Temperature 97.4 F L 97 F L 98.4 F Pulse Rate 59 L 67 79 Respiratory Rate 17 15 16 Blood Pressure 116/58 L 104/48 L 106/54 L Pulse Oximetry 97 100 100 Oxygen Delivery 04/22/23 00:47 04/22/23 01:08 04/21/23 20:00 Temperature 98.5 F 98.6 F Pulse Rate 66 55 L Respiratory Rate 14 14 Blood Pressure 108/58 L 110/50 L Pulse Oximetry 100 100 Oxygen Delivery Room Air 04/22/23 01:09 04/22/23 02:09 04/22/23 03:09 Temperature 98.6 F 98.5 F 97.8 F Pulse Rate 55 L 65 62 Respiratory Rate 14 16 16 Blood Pressure 110/50 L 104/43 L 115/51 L Pulse Oximetry 100 98 100 Oxygen Delivery 04/22/23 03:18 04/22/23 05:42 Temperature 97.8 F 97.3 F L Pulse Rate 62 63 Respiratory Rate 16 16 Blood Pressure 115/51 L 122/54 L Pulse Oximetry 100 100 Oxygen Delivery Intake/Output Intake/Output: Intake & Output 04/19/23 04/20/23 04/21/23 04/22/23 23:59 23:59 23:59 23:59 Intake Total 0 800 Output Total 350 500 Balance -350 300 Meds/Results Medications: Active Medications Generic Name Dose Route Start Last Admin Trade Name Freq PRN Reason Stop Dose Admin Acetaminophen 650 mg 04/21/23 22:56 Acetaminophen 325 Mg Tablet PO Q6H PRN Mil
--- NOTE | 2023-04-22 13:09 | WPDGICN ---
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 She is quite active and lately she was symptomatic after walking outside. She called her doctor today and was directed to the emergency department, found to have symptomatic anemia. Labs in ER reviewed, WBC count 4.0, RBC count 2.44, hemoglobin 6.4, hematocrit 21%, platelets 274, troponin less than 0.012. Chest x-ray showed no acute cardiopulmonary abnormality. She received blood transfusion and now feeling better. She takes aleve 3 times a week for last 2 months because back pain and noted dark stools for last 2 weeks. No recent EGD. Review of Systems Constitutional: Constitutional: Reports fatigue Eyes: Eyes: Denies blurry vision ENT: Reports Normal hearing present Cardiovascular: Cardiovascular: Reports palpitations Respiratory: Respiratory: Reports dyspnea on exertion Gastrointestinal: Gastrointestinal: Denies abdominal pain Genitourinary: Genitourinary: Denies hematuria Musculoskeletal: Musculoskeletal: Denies stiffness Integumentary/Breasts: Skin/Breast: Denies rash Neurologic: Denies confusion Psychiatric: Psychiatric: Denies behavioral changes PENDING SALE TO [facility] Past Medical History Medical History (Updated 04/22/23 @ 13:18 by Cameron Siddiqui MD) B12 deficiency anemia Hiatal hernia Hyperlipidemia NSAID long-term use Osteopenia Surgical History Surgical History (Updated 04/21/23 @ 22:51 by Jacki Vázquez PA-C) History of appendectomy History of partial hysterectomy History of right cataract extraction (02/2021) Family History Family History Mother Family history of chronic obstructive pulmonary disease Social History Social History (Updated 04/21/23 @ 22:52 by Jacki Vázquez PA-C) Social History: Surrogate medical decision maker: Mariola Mares, daughter. Code status: Smoking status: Never smoker Second hand tobacco smoke exposure: No Alcohol intake: never Substance use: never Substance use type: does not use Lack of Transportation: No Lack of Food: Never True Current Housing: I Have Housing Concerned About Future Housing: No Difficulty Paying Gas/Electric Bills: No Difficulty Paying for Meds: No Currently Unemployed: No Education: High School Diploma/GED Difficulty w/ Childcare or Family Care: No Living arrangements: alone Additional living arrangements comments: . Lives in [place] with her dog. Occupation/Education: retired Spiritual care concerns: No Meds Home Medications and Allergies Home Medications Medication Instructions Recorded Confirmed Type calcium carbonate 600 mg-vitamin 1 cap PO DAILY #30 caps 03/19/21 04/21/23 Rx D3 12.5 mcg (500 unit) capsule (Calcium 600 with Vitamin D3) Allergies Allergy/AdvReac Type Severity Reaction Status Date / Time No Known Allergies Allergy Verified 04/21/23 15:06 Vital Signs Vital Signs - 24 hr 04/21/23 16:02 04/21/23 18:51 04/21/23 18:52 Temperature 97.9 F Pulse Rate 63 57 L Respiratory Rate 20 14 Bloo
[2023-04-22] MEDS: PANTOPRAZOLE SODIUM IV 40 MG VIAL IV PUSH ×2 (14:27→20:21)
[2023-04-22 16:53] LABS: Hemoglobin 9.1 g/dL (12.0-15.0)
[2023-04-22] MEDS: BISACODYL 5 MG TABLET EC 20 MG PO (17:43)
[2023-04-22] MEDS: polyethylene glycoL 3350 238 GM BOTTLE PO (17:43)
[2023-04-22] MEDS: CYANOCOBALAMIN INJ 1,000 MCG/ML VIAL 1000 MCG IM (20:21)
[2023-04-22 22:25] LABS: IFOB Positive Control Positive; Immunochemical Fecal Occult Bl Negative (N)
[2023-04-22 22:55] LABS: Hematocrit 32.3 % (37.0-47.0); Hemoglobin 10.3 g/dL (12.0-15.0)
--- NOTE | 2023-04-22 22:56 | ECHO_ITS ---
Patient Info Name: Sarai Douglas Age: 77 years : 1945 Gender: Female Ht: 62 in Wt: 109 lbs BSA: 1.47 m2 HR: 63 bpm BP: 122 / 54 mmHg Heart Rhythm: Sinus Rhythm Technical Quality: Good Exam Date: 04/22/2023 9:52 AM Exam Location: [facility] Card Pulmonary Patient Status: Inpatient Admit Date: 04/21/2023 Staff Ordering Physician: Jacki Vázquez PA-C Neurosurgery Spine Physician: Rick Roper RDCS Attending Provider: Ismael Lal MD Referring Physician: Kathie SINGH; Exam Type: CA echo doppler color flow Study Info Indications - chest pressure/shortness of breath with exertion Complete two-dimensional, color flow and Doppler transthoracic echocardiogram is performed. Summary 1. Complete two-dimensional, color flow and Doppler transthoracic echocardiogram is performed. 2. Left ventricular chamber dimension is normal. 3. Left ventricular systolic function is normal, estimated at 65-70%. 4. The left ventricular diastolic function is abnormal. 5. E/e' 16 is elevated. 6. Left atrial chamber dimension is mildly enlarged. 7. There is mild aortic valve sclerosis. 8. There is trace aortic valve regurgitation. 9. The mitral valve has moderately calcified annulus. 10. There is mild mitral valve regurgitation. 11. There is moderate tricuspid valve regurgitation. 12. Mild pulmonary hypertension, estimated pulmonary arterial systolic pressure is 48 mmHg. Left Ventricle E/e' 16 is elevated. Left ventricular chamber dimension is normal. Left ventricular systolic function is normal, estimated at 65-70%. The left ventricular diastolic function is abnormal. Right Ventricle Right ventricular systolic function is normal and with normal TAPSE 3.0 cm. Right ventricular chamber dimension is normal. Left Atria Left atrial chamber dimension is mildly enlarged. Right Atria Right atrial chamber dimension is normal. Aortic Valve The aortic valve is trileaflet. There is mild aortic valve sclerosis. There is no aortic valve stenosis. There is trace aortic valve regurgitation. Pulmonic Valve There is no pulmonic regurgitation. Mitral Valve The mitral valve has moderately calcified annulus. There is no mitral valve stenosis. There is mild mitral valve regurgitation. Tricuspid Valve There is moderate tricuspid valve regurgitation. Mild pulmonary hypertension, estimated pulmonary arterial systolic pressure is 48 mmHg. Pericardium/Pleural There is no pericardial effusion. Inferior Vena Cava Normal inferior vena cava with >50% collapse upon inspiration consistent with normal right atrial pressure, 5 mmHg. Aorta The aortic root size at the sinus of Valsalva is normal. Left Ventricular Outflow Tract Name Value Normal LVOT 2D LVOT Diameter 1.7 cm LVOT Doppler LVOT Peak Gradient 5 mmHg LVOT Mean Gradient 3 mmHg LVOT VTI 27 cm LVOT VTI/AV VTI Ratio 0.8 LVOT Stroke Volume 63 ml LVOT CO 3.8 l/min LVOT CI 2.6 l/min/m2 Pulmonic Valve
[2023-04-23] VITALS (8 sets, daily range): BP systolic 93–134; BP diastolic 46–71; PULSE 54–68; RESP 14–25; TEMP 36.2–36.6; O2SAT 96–100
[2023-04-23 06:47] LABS: Hemoglobin 10.7 g/dL (12.0-15.0); Mean Corpuscular HGB Conc 31.5 g/dl (32-36); Mean Corpuscular Hemoglobin 27.7 pg (26-34); Mean Corpuscular Volume 88.1 fl (80-100); Mean Platelet Volume 9.7 fl (7.4-10.4); Platelet Count Result 298 k/mm3 (150-375); Red Blood Count 3.86 M/mm3 (4.2-5.4); Red Cell Distribution Width 15.2 % (11.5-14.5); White Blood Count 5.7 K/mm3 (4.5-10.0)
[2023-04-23 07:20] LABS: Anion Gap 6 mmol/L (8-16); Blood Urea Nitrogen 10 mg/dL (7-17); Calcium 9.5 mg/dL (8.4-10.2); Carbon Dioxide 26 mmol/L (22-30); Chloride 109 mmol/L (98-107); Estimated CRCL calculation 45 ml/min; Estimated Glomerular Filt Rate > 60; Glucose 103 mg/dL (65-110); Potassium 3.6 mmol/L (3.4-5.0); Sodium 141 mmol/L (137-145)
[2023-04-23] MEDS: CYANOCOBALAMIN 1,000 MCG TABLET 1000 MCG PO (08:17)
[2023-04-23] MEDS: PANTOPRAZOLE SODIUM IV 40 MG VIAL IV PUSH (08:17)
--- NOTE | 2023-04-23 11:45 | WPDANESEPPF ---
Anes - Initial Pre Proc Eval Procedure: Operation Date: 04/23/23 13:00 Proposed Procedures p Esophagogastroduodenoscopy & Colonoscopy - Cameron Siddiqui MD Date/Time: 04/23/23 11:45 Surgeon: Laci Lal MD Pre Op Diagnosis: anemia Patient Data Age: 77 Gender: F Height: 1.57 m Weight: 49.7 kg Last Vital Signs Temp 97.5 F L 04/23/23 11:42 Pulse 56 L 04/23/23 11:42 Resp 18 04/23/23 11:42 BP 116/49 L 04/23/23 11:42 Pulse Ox 99 04/23/23 11:42 O2 Del Method Room Air 04/23/23 11:42 Allergies Allergy/AdvReac Type Severity Reaction Status Date / Time No Known Allergies Allergy Verified 04/23/23 11:39 Home Medications Medication Instructions Recorded Confirmed Type calcium carbonate 600 mg-vitamin 1 cap PO DAILY #30 caps 03/19/21 04/21/23 Rx D3 12.5 mcg (500 unit) capsule (Calcium 600 with Vitamin D3) Laboratory Tests 04/22/23 04/22/23 04/22/23 16:34 20:07 22:48 WBC RBC Hgb 9.1 L g/dL 10.3 L g/dL (12.0-15.0) (12.0-15.0) Hct 29.0 L % 32.3 L % (37.0-47.0) (37.0-47.0) MCV MCH MCHC RDW Plt Count MPV Sodium Potassium Chloride Carbon Dioxide Anion Gap BUN Creatinine Estim Creat Clear Calc Estimated GFR Glucose Calcium Stl Occult Blood (IFOB) Negative (N) 04/23/23 06:09 WBC 5.7 K/mm3 (4.5-10.0) RBC 3.86 L M/mm3 (4.2-5.4) Hgb 10.7 L g/dL (12.0-15.0) Hct 34.0 L % (37.0-47.0) MCV 88.1 fl (80-100) MCH 27.7 pg (26-34) MCHC 31.5 L g/dl (32-36) RDW 15.2 H % (11.5-14.5) Plt Count 298 k/mm3 (150-375) MPV 9.7 fl (7.4-10.4) Sodium 141 mmol/L (137-145) Potassium 3.6 mmol/L (3.4-5.0) Chloride 109 H mmol/L (98-107) Carbon Dioxide 26 mmol/L (22-30) Anion Gap 6 L mmol/L (8-16) BUN 10 D mg/dL (7-17) Creatinine 0.70 mg/dL (0.7-1.0) Estim Creat Clear Calc 45 ml/min Estimated GFR > 60 (59 - ) Glucose 103 mg/dL (65-110) Calcium 9.5 mg/dL (8.4-10.2) Stl Occult Blood (IFOB) Patient hx anesthesia problems: none Family hx anesthesia problems: none Results Review: All pre-operative results and documents have been reviewed as part of the pre-operative evaluation. [facility] Past Medical History Medical History (Updated 04/22/23 @ 13:18 by Cameron Siddiqui MD) B12 deficiency anemia Hiatal hernia Hyperlipidemia NSAID long-term use Osteopenia Surgical History Surgical History (Updated 04/21/23 @ 22:51 by Jacki Vázquez PA-C) History of appendectomy History of partial hysterectomy History of right cataract extraction (02/2021) Family History Family History Mother Family history of chronic obstructive pulmonary disease Social History Social History (Updated 04/21/23 @ 22:52 by Jacki Vázquez PA-C) Social History: Surrogate medical decision maker: Mariola Mares, daughter. Code status: Smoking status: Never smoker Second hand tobacco smoke exposure: No Alcohol intake: never Substance use: never Substance use type: does not use Lack of Transportation: No Lack of Food: Never True Current Housing: I Have Housing Concerned About Future Housing: No Difficulty Paying Gas/Electric Bills: No Difficulty Paying for Meds: No Currently Unemployed: No Education: High School Diploma/GED Difficulty w/ Childcare or Family Care: No Living arrangements: alone Additional living arrangements comments: . Lives in [place] with her dog. Occupation/Education: retired Spiritual care concerns: No Anes - Eval Final PreProcedure Day of Procedure 0
[2023-04-23] MEDS: LACTATED RINGERS 1,000 ML 150 ML IV CONT (11:46)
[2023-04-23] MEDS: BENZOCAINE (*SP) 60 ML SPRAY CAN (HURRICAINE) 1 SPRAY MUCOUS MEM (13:05)
--- NOTE | 2023-04-23 13:15 | SUR.OPER ---
EGD ended at 1310. Colonoscopy began at 1315.
--- NOTE | 2023-04-23 17:45 | PM.DS ---
DS: Admitting Diagnosis Discharge Date 04/23/23 Admitting Diagnosis Chest pain and shortness of breath DS: Discharge Diagnosis Discharge Diagnosis (1) Chest pressure: Code(s): R07.89 - Other chest pain Status: Acute Assessment and Plan: EKG showing NSR with sinus arrhythmia. Trop negative x3. Echo showing EF 65-70%, diastolic dysfunction, and mild pHTN. [place] related demand ischemia from the anemia. Resolved. Follow (2) Symptomatic anemia: Code(s): D64.9 - Anemia, unspecified Status: Acute Assessment and Plan: Hgb 6.4 on admission. She was having black stools. She does use NSAIDs 3-4x/week on average. Iron studies consistent with iron deficiency. Also noted to be B12 deficiency. Suspect GI blood loss. GI consulted. Endoscopy planned for the morning. Add PPI. Follow HH and transfuse to stable Hgb. (3) Iron deficiency anemia: Code(s): D50.9 - Iron deficiency anemia, unspecified Status: Acute Assessment and Plan: As above. Order iron replacement after endoscopy completed. (4) B12 deficiency anemia: Code(s): D51.9 - Vitamin B12 deficiency anemia, unspecified Status: Acute Assessment and Plan: B12 level 215 consistent with B12 deficiency. Will replace. Will need to be discharged home on B12. DS: Summary Hospital Course Hospital Course: 77yo female with HLD here for chest pain and SOB and found to have anemia. Hgb 6.4 on admission. She was having black stools. She does use NSAIDs 3-4x/week on average. Iron studies consistent with iron deficiency. Also noted to be B12 deficiency. Suspect GI blood loss. GI consulted. Add PPI. Hemoglobin stabilized. EGD and colonoscopy performed without any significant findings. Patient discharged in stable condition with close outpatient follow-up. Time Spent with Patient Time attestation: Total time spent providing and/or coordinating discharge services: Exam Narrative: AF 97.3 122/54 63 16 100% ra Gen - NARD Chest - CTA bilaterally, nml RR CV - RRR S1/S2 Abd - Soft, NT/ND, Positive BS Ext - No pedal edema Psych - Nml mood and affect Skin - Warm and dry DS: Data Data Completed and Pending Pending studies at discharge: Pending at discharge 04/23/23 13:13 Surgical [PTH] Routine Labs on day of discharge: Labs from last 24 hours 04/23/23 04/22/23 04/22/23 06:09 22:48 20:07 WBC 5.7 RBC 3.86 L Hgb 10.7 L 10.3 L Hct 34.0 L 32.3 L MCV 88.1 MCH 27.7 MCHC 31.5 L RDW 15.2 H Plt Count 298 MPV 9.7 Sodium 141 Potassium 3.6 Chloride 109 H Carbon Dioxide 26 Anion Gap 6 L BUN 10 D Creatinine 0.70 Estim Creat Clear Calc 45 Estimated GFR > 60 Glucose 103 Calcium 9.5 Stl Occult Blood (IFOB) Negative Discharge Plan Discharge Attending physician on discharge: Louise Rosen Consulting providers: Cameron Siddiqui Discharging Clinician: Louise Rosen Patient Disposition: Home, Self-Care Activity: as tolerated Diet: regular Discharge Instructions: Please follow-up with GI outpatient in 3-4 weeks. They will call you with your EGD/colonoscopy results, if you have not heard from them in 7 days call the office. Monitor for any signs of shortness of breath, chest pain, dizziness, rapid heart rate, or active bleeding. Should you note any of these symptoms, return to the Emergency Room. Follow up with your primary doctor in 1 week. Patient Instructions: Antibiotic Form, Anemia (DC), Blood Transfusion (DC), Colonoscopy (DC), Upper Endoscopy (DC) Stand Alone Forms: General Discharge Information Follow-up/Referrals: Jonah Wood MD [Primary Care Provider] - Cameron Siddiqui MD [Physician] - Call for Appointment Discharge Medications: New cyanocobalamin (vitamin B-12) [Vitamin B-12] 1,000 mcg Tablet 1,000 mcg PO QAM 30 Days Qty: 30 0RF ferrous sulfate 325 mg
== END 2023-04-23 18:09 | disposition home or self-care (01) | DRG 812 ==
LOC: ANHED 17:21 → ANH3MEDSUR 18:33
PROVIDERS: Internal Medicine Gastroenterology; Physician Assistant; Admitting Provider Internal Medicine; Emergency Provider Emergency Medicine; PCP Family Medicine; Visit Provider Student in an Organized Health Care Education/Training Program
PROC: 0DJ08ZZ Inspection of Upper Intestinal Tract, Via Natural or Artificial Opening Endoscopic (ICD-10-PCS; CPT 43235; principal; 2023-04-23 13:00)
DX: D50.9 Iron deficiency anemia, unspecified (principal); K92.1 Melena; Q27.33 Arteriovenous malformation of digestive system vessel; R07.89 Other chest pain; D51.9 Vitamin B12 deficiency anemia, unspecified; E78.5 Hyperlipidemia, unspecified; K29.70 Gastritis, unspecified, without bleeding; K64.8 Other hemorrhoids; K57.30 Diverticulosis of large intestine without perforation or abscess without bleeding; M85.80 Other specified disorders of bone density and structure, unspecified site; Z79.1 Long term (current) use of non-steroidal anti-inflammatories (NSAID); Z90.49 Acquired absence of other specified parts of digestive tract; Z90.710 Acquired absence of both cervix and uterus; Z98.41 Cataract extraction status, right eye
CPT/HCPCS: 36415; 36430; 71046; 80048; 80053; 82274; 82607; 82728; 82746; 83540; 83550; 83690; 83735; 84443; 84466; 84484; 85014; 85018; 85025; 85027; 85046; 85610; 85730; 86850; 86900; 86901; 86923; 88305; 93005; 93306; 96374; 99285; A9270; C9113; G0378; J2704; J3420; J7050; J7120; P9016

== ENCOUNTER 2024-01-06 13:26 | Outpatient (CLI) | payer MEDICARE, SELFPAY ==
--- NOTE | ~2024-01-06 | MM_ITS ---
EXAMINATION: MM screening [facility] BI w [facility] HISTORY: Screening mammogram TECHNIQUE: Craniocaudal and mediolateral oblique 3-D tomosynthesis images were obtained and synthetic 2-D images were generated. CAD analysis was submitted and interpreted. COMPARISON: 09/24/2022, 08/22/2021 bilateral screening mammogram examinations BREAST PARENCHYMAL COMPOSITION: There are scattered areas of fibroglandular density. FINDINGS: There is no evidence of suspicious mass, calcification, or architectural distortion to sugg est malignancy in either breast. There has been no suspicious interval change. IMPRESSION: 1. No mammographic evidence of malignancy. 2. Recommend routine screening mammography in one year. BI-RADS Category 1: Negative Reviewed, dictated and finalized at location A.
== END 2024-01-06 13:27 ==
PROVIDERS: PCP Family Medicine; Visit Provider Family Medicine
DX: Z12.31 Encounter for screening mammogram for malignant neoplasm of breast (principal)
CPT/HCPCS: 77063; 77067

== ENCOUNTER 2024-09-15 10:15 | Outpatient (CLI) | payer MEDICARE, OTHER, SELFPAY ==
--- NOTE | ~2024-09-15 | DEXA_ITS ---
Bone Density Report Name: DARLENE FIGUEROA Age: 78 Sex: Female Ethnicity: White Date of : 1945 Indication: osteopenia; hysterectomy; Referring Provider: ASA ISAAC Study: Bone densitometry was performed. Exam Date: September 15, 2024 Accession number: [id number] Bone Density: Region BMD T-score Z-score Classification AP Spine(L1-L4) 0.879 -1.5 1.1 Osteopenia Femoral Neck (Left) 0.669 -1.6 0.7 Osteopenia Total Hip (Left) 0.709 -1.9 0.1 Osteopenia Femoral Neck (Right) 0.663 -1.7 0.6 Osteopenia Total Hip (Right) 0.716 -1.9 0.2 Osteopenia Total Hip Mean 0.713 -1.9 0.2 Osteopenia World Health Organization criteria for BMD impression classify patients as: Normal (T-score at or above -1.0), Osteopenia (T-score between -1.0 and -2.5), or Osteoporosis (T-score at or below -2.5). 10-year Fracture Risk(1): Major Osteoporotic Fracture 12% Hip Fracture 3.1% Reported Risk Factors: [place] (), Neck BMD=0.669, BMI=19.8 (1) FRAX(R) Version 3.08. Fracture probability calculated for an untreated patient. Fracture probability may be lower if the patient has received treatment. Previous Exams: Region Exam Age BMD T-score BMD Change BMD Change Date g/cm2 vs Baseline vs Previous AP Spine (L1-L4) 09/15/2024 78 0.879 -1.5 0.046 (5.5%)# 0.027 (3.1%)* 09/09/2022 76 0.853 -1.8 0.019 (2.3%)# 0.024 (2.9%)* 08/09/2020 74 0.828 -2.0 -0.005 (-0.6%) -0.002 (-0.2%) 07/20/2018 72 0.830 -2.0 -0.003 (-0.4%) -0.012 (-1.5%) 06/11/2016 70 0.843 -1.9 0.009 (1.1%) 0.009 (1.1%) 06/04/2013 67 0.834 -1.9 Total Hip(Left) 09/15/2024 78 0.709 -1.9 -0.146 (-17.0% 0.002 (0.2%) 09/09/2022 76 0.708 -1.9 -0.147 (-17.2% -0.059 (-7.7%) 08/09/2020 74 0.767 -1.4 -0.088 (-10.3% 0.018 (2.4%) 07/20/2018 72 0.749 -1.6 -0.106 (-12.4% -0.054 (-6.8%) 06/11/2016 70 0.803 -1.1 -0.052 (-6.0%) -0.052 (-6.0%) 06/04/2013 67 0.855 -0.7 Total Hip(Right) 09/15/2024 78 0.716 -1.9 -0.109 (-13.2% 0.010 (1.4%) 09/09/2022 76 0.706 -1.9 -0.119 (-14.4% -0.044 (-5.9%) 08/09/2020 74 0.750 -1.6 -0.075 (-9.1%) -0.013 (-1.7%) 07/20/2018 72 0.763 -1.5 -0.062 (-7.5%) -0.048 (-5.9%) 06/11/2016 70 0.811 -1.1 -0.014 (-1.7%) -0.014 (-1.7%) 06/04/2013 67 0.825 -1.0 *Denotes significance at 95% confidence level, LSC for AP Spine = 0.022 g/cm2, LSC for Total Hip = 0.027 g/cm2 # Denotes dissimilar scan types or analysis methods Clinical Information Provided by Patient: Has used the following medications: Vitamin D, Calcium Has the following medical conditions: Hysterectomy Patient maximum height was 62 Menopause Age: 54 Onset of menses at age 13 Number of children 2 Impression: The patient has low bone mass, based on the Left Total Hip T-score. The patient has an estimated ten-year risk of hip fracture of 3.1% and an estimated ten-year risk of major fracture of 12%, based on the WHO FRAX algorithm. No significant bone loss was observed. Discussion: BONE DENSITY IS LOW AT ONE OR MORE SKELETAL SITES. THE PATIENT'S BMD AND CLINICAL RISK FACTORS CONTRIBUTE TO THIS PATIENT'S INCREASED RISK OF FRACTURE. This patient's lowest T-score is low at one or more skeletal sites. It meets the World Health Organization's (WHO) criteria for ?low bone mass? (T-score between -1.0 and -2.5). The patient's 10-year risk of hip fracture as calculated by FRAX exceeds the threshold where pharmacological therapy is recommended by the National Osteoporosis Foundation (NOF). However, all treatment decisions require clinical judgment and consideration of individual patient factors, including patient preferences, comorbidities, previous drug use, risk factors not captured in the FRAX model (e.g., frailty, falls, vitamin D deficiency, increased bone turnover, interval significant decline in bone density) and possible under or overestimation of fracture risk by FRAX. The patient should follow a healthful lifestyle (good nutrition with adequate calcium and vitamin D, and appropriate weight-bearing exercise). Follow-Up: Consider a repeat BMD and Vertebral Fracture Assessment (VFA) exam in 2 years or sooner if medically necessary, to reassess this patient's status. Reported by: VICKY on 09/15/2024 10:51:00 AM. Reviewed, dictated and finalized at location A. [facility]
== END 2024-09-15 10:16 | disposition home or self-care (01) ==
LOC: ANHIMG 10:16
PROVIDERS: PCP Family Medicine; Visit Provider Family Medicine
DX: Z78.0 Asymptomatic menopausal state (principal); M85.88 Other specified disorders of bone density and structure, other site; M85.852 Other specified disorders of bone density and structure, left thigh; M85.851 Other specified disorders of bone density and structure, right thigh
CPT/HCPCS: 77080

== ENCOUNTER 2025-01-07 14:58 | Outpatient (CLI) | payer MEDICARE, OTHER, SELFPAY ==
--- NOTE | ~2025-01-07 | MM_ITS ---
EXAMINATION: MM screening [facility] BI w [facility] HISTORY: Screening TECHNIQUE: Craniocaudal and mediolateral oblique 3-D tomosynthesis images were obtained and synthetic 2-D images were generated. CAD analysis was submitted and interpreted. COMPARISON: 01/06/2024 and dating back to 08/09/2020 BREAST PARENCHYMAL COMPOSITION: There are scattered areas of fibroglandular density. FINDINGS: Punctate calcifications detected bilaterally, stable and benign in appearance, dermal in or igin. Stable parenchymal pattern without suspicious microcalcifications, architectural distortion, discrete masses or significant asymmetry. IMPRESSION: 1. No mammographic evidence of malignancy. 2. Recommend routine screening mammography in one year. BI-RADS Category 2: Benign finding(s). Reviewed, dictated and finalized at location A.
== END 2025-01-07 14:59 | disposition home or self-care (01) ==
LOC: ANHIMG 15:01
PROVIDERS: PCP Family Medicine; Visit Provider Family Medicine
DX: Z12.31 Encounter for screening mammogram for malignant neoplasm of breast (principal)
CPT/HCPCS: 77063; 77067

== ENCOUNTER 2025-09-22 12:58 | Outpatient (CLI) | payer MEDICARE, SELFPAY ==
--- NOTE | ~2025-09-22 | XR_ITS ---
EXAMINATION: XR hip LT min 2V, 09/22/2025 13:15 [employer] HISTORY: M25.552 - Pain in left hip COMPARISON: No comparisons available. Findings: No acute fracture or malalignment. Moderate to severe degenerative changes Soft tissues unremarkable. Impression: No acute fracture or malalignment. Reviewed, dictated and finalized at location P. ANALYT[employer] DEVELOPER Impression: No acute fracture or malalignment.
== END 2025-09-22 12:59 | disposition home or self-care (01) ==
PROVIDERS: PCP Family Medicine; Visit Provider Family Medicine
DX: M25.552 Pain in left hip (principal)
CPT/HCPCS: 73502